=== PATIENT | female | born 1990 | race African-American/Black ===

== ENCOUNTER 2017-06-18 17:43 | Emergency (ER) | payer SELFPAY ==
[~2017-06-18] VITALS: Ht 170.2 cm; Wt 105.5 kg
[~2017-06-18 17:43] MED LIST: FOCALIN2.5 MG PO; LAMICTAL5 MG PO; WELLBUTRIN75 MG PO
[2017-06-18 19:14] LABS: HEMATOCRIT 46.4 % (36.0-46.0); MCH 30.5 PG (29.0-34.0); MCHC 33.2 G/DL (30.0-36.0); MCV 91.9 FL (83-99); MEAN PLAT.VOLUME 10.2 uM^3 (9.5-12.4); PLATELET COUNT 238 K/uL (156-360); RBC DIS.WIDTH-CV 11.9 % (11.8-14.6); RBC DIS.WIDTH-SD 39.9 % (39-53); RED BLOOD COUNT 5.05 M/uL (3.80-5.20); WHITE BLOOD COUNT 10.1 K/uL (4.1-10.2)
[2017-06-18 19:40] LABS: QUANTITATIVE HCG 205.1 MIU/ML
[2017-06-18 20:15] LABS: ADD MIUA? YES; BILIRUBIN NEGATIVE; BLOOD LARGE; COLOR AMBER ((YELLOW)); GLUCOSE (STRIP) NEGATIVE; KETONES 5; LEUKOCYTES MODERATE; NITRITE NEGATIVE; PROTEIN (STRIP) 100; SPECIFIC GRAVITY 1.029 (1.000-1.030)
[2017-06-18 20:41] LABS: RED BLOOD CELLS 20-30 /HPF (0-5)
[2017-06-18 20:42] LABS: BACTERIA 2+ /HPF; CASTS NONE SEEN /LPF; CRYSTALS NONE SEEN; EPITHELIAL CELLS 2+ /HPF; MUCUS 3+ /LPF; UCUL ADDED? YES
[2017-06-18 21:02] LABS: CHLORIDE 107 mEq/L (99-109); SODIUM 140 mEq/L (136-147)
[2017-06-18 21:04] LABS: GLUCOSE 88 mg/dL (70-99)
[2017-06-18 21:06] LABS: ANION GAP 10 MEQ/L (2-14)
[2017-06-18 21:08] LABS: GFR ESTIMATE (CALCULATED) > 59 mL/min/
[2017-06-18 21:09] LABS: UREA NITROGEN (BUN) 13 mg/dL (9-23)
[2017-06-18] MEDS ORDERED: KEFLEX500 MG PO (22:56)
[2017-06-18 23:01] VITALS: BP 133/82
== END 2017-06-18 23:03 | disposition home or self-care (01) ==
LOC: EME 17:43
DX: O03.9 Complete or unspecified spontaneous abortion without complication (principal); Z3A.01 Less than 8 weeks gestation of pregnancy; F17.200 Nicotine dependence, unspecified, uncomplicated; F32.9 Major depressive disorder, single episode, unspecified; F90.9 Attention-deficit hyperactivity disorder, unspecified type
CPT/HCPCS: 76801; 80048; 80048 91; 81003; 84702; 85027; 86900; 86901; 87086; 99281; 99284